=== PATIENT | male | born 1990 | race Hispanic/Latino ===

== ENCOUNTER 2022-02-02 03:13 | Emergency (ER) | payer SELFPAY ==
[2022-02-02 03:44] LABS: Absolute Lymphocytes (CBC) 1.8 K/uL (0.7-4.9); Hematocrit 47.6 % (39.6-49.0); Lymphocytes % 23.8 % (15.3-44.8); MCV 87.8 fL (80-100); MPV 8.1 fL (7.6-11.3); RBC Red Blood Cell Count 5.42 M/uL (4.33-5.43)
[2022-02-02] MEDS ORDERED: MORPHINE 4 MG/ML SYR ONE (03:46)
[2022-02-02] MEDS ORDERED: SMZ./TMP. 800/160 MG TABLET ONE (03:46)
[2022-02-02] MEDS ORDERED: TETANUS & DIPHTHERIA TOX,ADULT 0.5 ML VIAL ONE (03:47)
[2022-02-02] MEDS ORDERED: DOXYCYCLINE 100 MG CAP PO ONE (03:47)
[2022-02-02] MEDS ORDERED: ONDANSETRON 4 MG/2 ML VIAL ONE (03:47)
[2022-02-02 03:58] LABS: Potassium 3.7 mmol/L (3.5-5.1)
[2022-02-02] MEDS ORDERED: HYDROMORPHONE HCL 1 MG/ML INJ ONE (04:29)
[2022-02-02] MEDS ORDERED: LIDOCAINE 1% W/EPI 1:100,000 MDV 50 ML VIAL ONE (06:48)
--- NOTE | 2022-02-02 07:18 | EDPHYS ---
Physician Documentation [facility] Name: Jeremy Koehler Age: 32 yrs Sex: Male : 1990 Arrival Date: 02/02/2022 Time: 03:14 Bed 13 Private MD: ED Physician Clyde Wagner HPI: 02/02 05:02 This 32 yrs old Male presents to ER via Wheelchair with complaints of SHARK BITE. kdr 05:02 Patient is waiting in the service when he was apparently bitten by a shark. The bite is kdr to the left ankle. He denies any other injuries.. Onset: The symptoms/episode began/occurred just prior to arrival. Severity of symptoms: At their worst the symptoms were moderate severe incapacitating in the emergency department the symptoms are unchanged. The patient has not experienced similar symptoms in the past. The patient has not recently seen a physician. Historical: - Allergies: 03:32 No Known Allergies; ke1 - PMHx: 03:32 None; ke1 - PSHx: 03:32 None; ke1 - Immunization history:: Adult Immunizations Last tetanus immunization: not immunized. - Social history:: Smoking status: Patient reports the use of cigarette tobacco products, smokes one-half pack cigarettes per day. ROS: 05:02 Constitutional: Negative for fever, chills, and weight loss, Eyes: Negative for injury, kdr pain, redness, and discharge, Neck: Negative for injury, pain, and swelling, Cardiovascular: Negative for chest pain, palpitations, and edema, Respiratory: Negative for shortness of breath, cough, wheezing, and pleuritic chest pain, Abdomen/GI: Negative for abdominal pain, nausea, vomiting, diarrhea, and constipation, Back: Negative for injury and pain, Neuro: Negative for headache, weakness, numbness, tingling, and seizure activity. Psych: Negative for depression, anxiety, suicide ideation, homicidal ideation, and hallucinations, Allergy/Immunology: Negative for hives, rash, and allergies, Endocrine: Negative for neck swelling, polydipsia, polyuria, polyphagia, and marked weight changes, Hematologic/Lymphatic: Negative for swollen nodes, abnormal bleeding, and unusual bruising. 05:02 MS/extremity: Positive for injury or acute deformity, abrasion, bite, decreased range of motion, laceration, pain, swelling, tenderness, tingling, of the left lateral ankle, left Achilles and left medial ankle, Negative for ecchymosis, warmth. Exam: 05:02 Constitutional: This is a well developed, well nourished patient who is awake, alert, kdr and in no acute distress. Head/Face: Normocephalic, atraumatic. 05:02 Musculoskeletal/extremity: Extremities: grossly normal except: noted in the left lateral ankle, left Achilles and left medial ankle: ROM: limited active range of motion, limited passive range of motion, in the left lateral ankle and left medial ankle. Vital Signs: 03:23 BP 162 / 97; Pulse 78; Resp 22; Temp 99(O); Pulse Ox 100% ; Weight 77.11 kg; Height 5 ke1 ft. 7 in. (170.18 cm); Pain 10/10; 04:23 Pain 10/10; ke1 04:31 BP 128 / 85; Pulse 74; Resp 18; Pulse Ox 98% on R/A; ke1 07:00 BP 128 / 80; Pulse 80; Resp 16; Pulse Ox 100% on R/A; em6 03:23 Body Mass Index 26.63 (77.11 kg, 170.18 cm) ke1 Laceration: 07:20 Wound Repair of 3cm ( 1.2in ) subcutaneous laceration to left foot and left lateral kdr ankle. Distal neuro/vascular/tendon intact. Anesthesia: Local anesthetic administered with 5 mls of 1% lidocaine w/ Epi. Wound prep: Extensive cleansing by me, Wound irrigation by radiochemical technician by me, Copious irrigation. Skin closed with 3 3-0 Prolene using simple sutures and sterile technique. Dressed with Neosporin Letty. Patient tolerated well. MDM: 05:02 Data reviewed: vital signs, nurses notes, lab test result(s), radiologic studies. kdr Counseling: I had a detailed discussion with the patient and/or guardian regarding: the historical points, exam findings, and any diagnostic results supporting the discharge/admit diagnosis, lab results, radiology results. 07:17 Patient medically screened. kdr 07:22 ED course: Patient had good capillary refill and the foot otherwise appeared intact. kdr Patient has improved movement pain control. With a lieutenant fire fighter, I discussed with the patient the need for aching all antibiotics until complete and returning to the ED should any signs or symptoms of worsening infection occur. 02/02 03:32 Order name: CBC with Diff; Complete Time: 04:33 kdr 02/02 03:32 Order name: Chem 7; Complete Time: 04:33 kdr 02/02 03:32 Order name: Ankle Left 3 View XRAY kdr 02/02 05:12 Order name: Lower Ext Wo Con W/ Mpr EDMS 02/02 05:11 Order name: Wound Care; Complete Time: 05:12 ke1 Administered Medications: 03:55 Drug: Doxycycline 100 mg Route: PO; ke1 04:23 Follow up: Response: No adverse reaction ke1 03:56 Drug: Tetanus-Diphtheria Toxoid Adult 0.5 ml {Lgsw: [employer]. Exp: ke11/09/2023. Lot #: [id number]. } Route: IM; Site: right deltoid; 04:23 Follow up: Response: No adverse reaction ke1 03:56 Drug: Bactrim (trimethoprim-sulfamethoxazole) (160 mg-800 mg (DS) 1 tablet Route: PO; ke1 04:23 Follow up: Response: No adverse reaction ke1 03:59 Drug: morphine 4 mg Route: IVP; Infused Over: 4 mins; Site: right antecubital; ke1 04:23 Follow up: Pain 10 Adult; Response: Pain is unchanged, physician notified ke1 03:59 Drug: Zofran (Ondansetron) 4 mg Route: IVP; Site: right antecubital; ke1 04:23 Follow up: Response: No adverse reaction ke1 04:24 Drug: Dilaudid (HYDROmorphone) 1 mg Route: IVP; Site: right antecubital; ke1 05:11 Follow up: Response: Pain is unchanged, physician notified ke1 07:27 Drug: Barker (HYDROcodone-acetaminophen) 10 mg-325 mg 1 tabs Route: PO; ss Disposition Summary: 02/02/22 07:17 Discharge Ordered Location: Home kdr Problem: new kdr Symptoms: have improved kdr Condition: Stable kdr Diagnosis - Bitten by shark, initial encounter kdr Followup: kdr - With: Private Physician - When: 2 - 3 days - Reason: Wound Recheck, If symptoms return, Further diagnostic work-up, Recheck today's complaints, Continuance of care, Re-evaluation by your physician Discharge Instructions: - Discharge Summary Sheet kdr - Animal Bite, Adult, [id number] kdr Forms: - Medication Reconciliation Form kdr - Thank You Letter kdr - Antibiotic Education kdr - Prescription Opioid Use kdr - Work release form Prescriptions: - Bactrim DS 800-160 mg Oral Tablet - take 1 tablet by ORAL route every 12 hours for 10 days; 20 tablet; Refills: 0, kdr Product Selection Permitted - Doxycycline Monohydrate 100 mg Oral Tablet - take 1 tablet by ORAL route every 12 hours for 10 days; 20 tablet; Refills: 0, kdr Product Selection Permitted - Tylenol-Codeine #3 300 mg-30 mg Oral - take 2 tablet by ORAL route every 4-6 hours As needed; 18 tablet; Refills: 0, kdr Product Selection Permitted Signatures: Dispatcher [employer] EDMS Clyde Wagner MD MD kdr Aylin Funez RN RN Kenneth Hess RN RN ke1 Coni Ayala PA PA [id number]
[2022-02-02] MEDS ORDERED: HYDROCODONE/APAP 10/325 TAB ONE (07:27)
[2022-02-02 08:52] VITALS: TEMP 99
[2022-02-02 09:24] VITALS: BP 128/80; O2SAT 100
--- NOTE | 2022-02-03 11:20 | RAD REPORT ---
EXAM DESCRIPTION: RAD - Ankle Left 3 View - 02/02/2022 3:55 am CLINICAL HISTORY: Pain COMPARISON: None. FINDINGS: 3 views of the left ankle. No acute fracture or dislocation. Normal osseous mineralization . Mild medial soft tissue edema. IMPRESSION: 1. No acute fracture or dislocation. Electronically signed by: Duarte Ramirez 02/02/2022 4:45 AM CDT Due to temporary technical issues with the PACS/Fluency reporting system, reports are being signed by the in house radiologists without review as a courtesy to insure prompt reporting. The interpreting radiologist is fully responsible for the content of the report.
--- NOTE | 2022-02-03 13:48 | RAD REPORT ---
EXAM DESCRIPTION: CT - Lower Ext Wo Con W/ Mpr - 02/02/2022 6:43 am CLINICAL HISTORY: The patient is 32 years old and is Male; SHARK BITE TECHNIQUE: Axial computed tomography images of the left ankle without intravenous contrast. Sagitt al and coronal reformatted images were created and reviewed. This CT exam was performed using one o r more of the following dose reduction techniques: automated exposure control, adjustment of the mA and/or kV according to patient size, and/or use of iterative reconstruction technique. COMPARISON: X-ray left ankle February 02, 2022. FINDINGS: Bones/joints: No acute fracture. No dislocation. Soft tissues: Subcutaneous edema in the distal lower leg and ankle. There is a hematoma in the po sterior medial lower leg in greatest dimensions measuring approximately 3.5 cm AP, 2.5 cm transverse and 6.2 cm craniocaudal. Diffuse subcutaneous edema. There is a laceration in the lateral lower leg s oft tissues near the ankle. No soft tissue gas or abscess. No radiopaque foreign object identified. IMPRESSION: 1. No radiopaque foreign object. No soft tissue gas. 2. Posteromedial soft tissue hematoma in the lower leg. Lateral soft tissue laceration near the ank le. Electronically signed by: Joleen Fleming MD 02/02/2022 6:20 AM CDT Due to temporary technical issues with the PACS/Fluency reporting system, reports are being signed by the in house radiologists without review as a courtesy to insure prompt reporting. The interpreting radiologist is fully responsible for the content of the report.
== END 2022-02-02 08:16 | disposition home or self-care (01) ==
LOC: ER 03:13
PROC: 0JQR0ZZ Repair Left Foot Subcutaneous Tissue and Fascia, Open Approach (ICD-10-PCS; principal; 2022-02-02)
DX: S91.012A Laceration without foreign body, left ankle, initial encounter (principal); W56.41XA Bitten by shark, initial encounter; F17.210 Nicotine dependence, cigarettes, uncomplicated
CPT/HCPCS: 36415; 73700; 76377; 80048; 85025; 90471; 90714; 96374; 96375; 99284; J1170; J2405